=== PATIENT | male | born 1955 | race Caucasian/White ===

== ENCOUNTER 2021-05-31 21:39 | Emergency (ER) | payer MEDICARE, MEDICAID ==
[~2021-05-31] VITALS: Ht 154.1 cm; Wt 99.7 kg
[2021-05-31 21:43] VITALS: BP 117/98
--- NOTE | 2021-05-31 22:24 | Diagnostic Imaging Report ---
CLINICAL HISTORY: Right ankle pain for three months. COMPARISON: None. TECHNIQUE: 3 views of the right ankle. FINDINGS: Age-indeterminate nondisplaced fracture is seen involving the medial malleolus. There is generalized soft tissue edema surrounding the right ankle. No focal osseous lesions are seen. IMPRESSION: Age-indeterminate nondisplaced fracture involving the medial malleolus. Recommend correlation with point tenderness. Dictated by: Dictated on workstation # [id number]
--- NOTE | 2021-05-31 22:36 | ED Lower Extremity ---
General Chief Complaint: Lower Extremity Stated Complaint: RIGHT ANKLE INJURY Nursing Triage Note: Patient states he was walking his dog 3 months ago and rolled his ankle. Patient states that he has been having pain since then. Pain increased approximately 3-4 weeks ago. Patient wanted it checked out. History of Present Illness Date Seen by Provider: May 31, 2021 Time Seen by Provider: 21:45 Initial Comments 66-year-old male is here with complaints of right ankle pain which has been going on for about 1 month. Patient thinks he injured his ankle when he twisted it while walking his dog about 1 month back. Denies sensory loss. Patient has difficulty stabilizing his ankle and weight since the injury. Patient has pain and swelling around the ankle as well. Allergies and Home Medications Allergies Coded Allergies: peanut (Unverified Allergy, Unknown, 07/02/13) Patient Home Medication List Home Medication List Reviewed: Yes Review of Systems Constitutional: no symptoms reported EENTM: no symptoms reported Respiratory: no symptoms reported Cardiovascular: no symptoms reported Gastrointestinal: no symptoms reported Musculoskeletal: joint swelling, muscle pain Skin: no symptoms reported Psychiatric/Neurological: No Symptoms Reported Past Epqzyse-Pctmdo-Cgozwh Hx Patient Social History Tobacco Use?: No Substance use?: No Alcohol Use?: No Pt feels they are or have been: No Physical Exam Vital Signs Vital Signs - First Documented 05/31/21 21:43 Temp 36.3 Pulse 65 Resp 14 B/P (MAP) 117/98 (104) Pulse Ox 97 O2 Delivery Room Air Capillary Refill : Less Than 3 Seconds Height, Weight, BMI Height: 5'5.00" Weight: 235lbs. oz. 106.777888tu; 41.00 BMI Method: General Appearance: no apparent distress HEENT: PERRL/EOMI Neck: full range of motion Back: normal inspection Ankles: right ankle limited range of motion, right ankle pain, right ankle soft tissue tenderness, right ankle swelling Feet: right foot non-tender, right foot normal inspection, right foot normal range of motion, right foot no evidence of injury Neurologic/Tendon: normal sensation, normal motor functions Neurologic/Psychiatric: no motor/sensory deficits, alert, oriented x 3 Skin: normal color Progress/Results/Core Measures Results/Orders My Orders Orders - ODIN CRAMER MD Ankle 3 View Right (05/31/21 21:52) Vital Signs/I&O 05/31/21 21:43 Temp 36.3 Pulse 65 Resp 14 B/P (MAP) 117/98 (104) Pulse Ox 97 O2 Delivery Room Air Blood Pressure Mean: 104 Progress Progress Note : Progress Note 1. RIGHT MEDIAL MALLEOLUS FRACTURE, NONDISPLACED: - XR RIGHT ANKLE: nondisplaced right medial malleolus fracture - walking boot given, advised to use walker and not cane. - F/u with Ortho in the next 3 to 5 days - Tylenol or Ibuprofen prn pain Diagnostic Imaging Diagonstic Imaging: Xray Plain Films/CT/US/NM/MRI: ankle Comments [facility], [place] NAME: JAIRO HA [facility] REC#: [id number] PT STATUS: REG ER : 1955 PHYSICIAN: ODIN CRAMER MD ADMIT DATE: 05/31/21/ER FS Signed Date of Exam:05/31/21 ANKLE 3 VIEW RIGHT CLINICAL HISTORY: Right ankle pain for three months. COMPARISON: None. TECHNIQUE: 3 views of the right ankle. FINDINGS: Age-indeterminate nondisplaced fracture is seen involving the medial malleolus. There is generalized soft tissue edema surrounding the right ankle. No focal osseous lesions are seen. IMPRESSION: Age-indeterminate nondisplaced fracture involving the medial malleolus. Recommend correlation with point tenderness. Dictated by: Dictated on workstation # [id number] Dict: 05/31/212219 Trans: 05/31/212223 [facility] [id number] Interpreted by: CARLEEN GASCA DO Electronically signed by: CARLEEN GASCA DO 05/31/212223 Departure Impression Primary Impression: Medial malleolar fracture Qualified Codes: S82.54XA - Nondisplaced fracture of medial malleolus of right tibia, initial encounter for closed fracture Disposition: HOME, SELF-CARE Condition: Stable Departure-Patient Inst. Referrals: ARIANA OCONNOR MD (PCP/Family) Primary Care Physician JOSÉ ANTONIO MORALES MD Patient Instructions: Ankle Fracture (DC) Add. Discharge Instructions: - walking boot given, advised to use walker and not cane. - F/u with Ortho in the next 3 to 5 days - Tylenol or Ibuprofen prn pain All discharge instructions reviewed with patient and/or family. Voiced understanding. ODIN CRAMER MD May 31, 2021 22:36
== END 2021-05-31 22:40 | disposition home or self-care (01) ==
LOC: EDUNIT# 21:39 → ER FS 21:43
DX: S82.54XA Nondisplaced fracture of medial malleolus of right tibia, initial encounter for closed fracture (principal); X50.1XXA Overexertion from prolonged static or awkward postures, initial encounter
CPT/HCPCS: 73610

== ENCOUNTER → 2021-06-09 | Outpatient (CLI) | payer MEDICARE, MEDICAID ==
--- NOTE | 2021-06-09 17:39 | Diagnostic Imaging Report ---
Indication: Fall. Time of Exam: 2:48 PM 3 views of the right ankle were obtained. Alignment is normal. Ankle mortise is well maintained. Talar dome is smooth. No fracture or dislocation is seen. There is a large plantar calcaneal spur. There appears to be mild generalized soft tissue swelling about the ankle. IMPRESSION: Soft tissue swelling. No acute bony abnormality is detected. Dictated by: Dictated on workstation # [id number]
== END ==
LOC: RAD FS 14:30
PROVIDERS: ATTEND Nurse Practitioner
DX: M25.471 Effusion, right ankle (principal); W19.XXXA Unspecified fall, initial encounter
CPT/HCPCS: 73610

== ENCOUNTER 2021-07-25 19:21 | Emergency (ER) | payer MEDICARE, MEDICAID ==
--- NOTE | 2021-07-25 19:30 | ED General ---
General Stated Complaint: LT SHOULDER PAIN History of Present Illness Date Seen by Provider: July 25, 2021 Time Seen by Provider: 19:29 Initial Comments 66-year-old male with PMH of diabetes mellitus/right ankle issues, is here with complaints of chronic left shoulder pain which has been going on for the past few weeks. Patient thinks he might have strained his shoulder while he was doing physical therapy for his ankle since he has to grasp the handles of a machine with some strength during PT sessions. Denies falls, injuries, trauma, sensory loss, headache, dizziness, LOC, head strike. Allergies and Home Medications Allergies Coded Allergies: peanut (Unverified Allergy, Unknown, 07/02/13) Patient Home Medication List Home Medication List Reviewed: Yes Review of Systems Review of Systems Constitutional: no symptoms reported EENTM: no symptoms reported Respiratory: no symptoms reported Cardiovascular: no symptoms reported Gastrointestinal: no symptoms reported Genitourinary: no symptoms reported Musculoskeletal: joint pain, muscle pain Skin: no symptoms reported Psychiatric/Neurological: No Symptoms Reported Hematologic/Lymphatic: No Symptoms Reported Immunological/Allergic: no symptoms reported Physical Exam Vital Signs Vital Signs - First Documented 07/25/21 19:27 Temp 36.6 Pulse 89 Resp 18 B/P (MAP) 143/89 (107) Pulse Ox 97 O2 Delivery Room Air Capillary Refill : Height, Weight, BMI Height: 5'5.00" Weight: 235lbs. oz. 106.633172sr; 41.00 BMI Method: General Appearance: No Apparent Distress HEENT: PERRL/EOMI Neck: Full Range of Motion, Normal Inspection Extremity: Normal Inspection, Other (LEFT SHOULDER: no deformity, no swelling, but pt has restricted ROM and cannot fully extend his extremity above his head or straight in front of him due to pain. NV bundle intact.) Progress/Results/Core Measures Suspected Sepsis SIRS Temperature: Pulse: Respiratory Rate: Blood Pressure / Mean: Results/Orders My Orders Orders - ODIN CRAMER MD Shoulder 3 View Left (07/25/21 19:33) Ketorolac Injection (Toradol Injection) (07/25/21 19:45) Medications Given in ED Current Medications Medications Dose Ordered Sig/Laron Route Start Time Stop Time Status Last Admin Dose Admin Ketorolac Tromethamine 30 mg ONCE ONCE IM 07/25/21 19:45 5/21/22 19:46 DC 07/25/21 19:48 30 MG Vital Signs/I&O 07/25/21 19:27 Temp 36.6 Pulse 89 Resp 18 B/P (MAP) 143/89 (107) Pulse Ox 97 O2 Delivery Room Air Capillary Refill : Progress Note : Progress Note LEFT SHOULDER PAIN: ARTHRITIS - XR LEFT SHOULDER: no acute changes - Toradol 30mg im - Follow up with PCP and Ortho in the next 7 days - Over the counter lidoderm patches recommended - Tylenol prn pain - Sling for temporary relief - Will need referral for physical therapy Diagnostic Imaging Diagonstic Imaging: Xray Departure Impression Primary Impression: Chronic left shoulder pain Additional Impression: Arthritis Disposition: 01 HOME, SELF-CARE Condition: Stable Departure-Patient Inst. Referrals: ARIANA OCONNOR MD (PCP) Primary Care Physician Patient Instructions: How to Use a Shoulder Sling, Shoulder Pain (DC) Add. Discharge Instructions: - Follow up with PCP and Ortho in the next 7 days - Over the counter lidoderm patches recommended - Tylenol prn pain - Sling for temporary relief - Will need referral for physical therapy ODIN CRAMER MD July 25, 2021 19:30
[2021-07-25] MEDS ORDERED: KETOROLAC 30 MG/ML VIAL IM ONE (19:45)
--- NOTE | 2021-07-25 20:01 | Diagnostic Imaging Report ---
EXAMINATION: Left shoulder radiographs. EXAM DATE: 07/25/2021. COMPARISON: None available. HISTORY: Left shoulder pain. TECHNIQUE: 3 views of the left shoulder. FINDINGS: There is no acute fracture, dislocation, or destructive osseous process. The joint spaces are normal. The soft tissues are normal. IMPRESSION: No acute osseous abnormality of the left shoulder. Dictated by: Dictated on workstation # [id number]
[2021-07-25 21:13] VITALS: BP 143/89
== END 2021-07-25 21:18 | disposition home or self-care (01) ==
LOC: EDUNIT# 19:21 → ER FS 19:25
DX: M19.012 Primary osteoarthritis, left shoulder (principal)
CPT/HCPCS: 73030

== ENCOUNTER → 2021-08-10 | Outpatient (CLI) | payer MEDICARE, MEDICAID ==
--- NOTE | 2021-08-10 13:04 | Diagnostic Imaging Report ---
INDICATION: Pain. TECHNIQUE: Three views were obtained. FINDINGS: The alignment is normal. There is no fracture or dislocation. There are degenerative changes in the right hip. The soft tissues are unremarkable. IMPRESSION: Degenerative changes of the right hip; however, no acute fracture or dislocation. Dictated by: Dictated on workstation # [id number]
--- NOTE | 2021-08-10 13:11 | Diagnostic Imaging Report ---
INDICATION: Pain. 3 views were obtained. FINDINGS: There are minimal degenerative changes. No fracture or dislocation. There is no joint effusion. The soft tissues are unremarkable. IMPRESSION: Minimal degenerative changes otherwise unremarkable. Dictated by: Dictated on workstation # [id number]
== END ==
LOC: RAD FS 11:06
PROVIDERS: ATTEND Nurse Practitioner
DX: M17.11 Unilateral primary osteoarthritis, right knee (principal); M16.11 Unilateral primary osteoarthritis, right hip
CPT/HCPCS: 73502; 73562

== ENCOUNTER → 2021-11-18 | Outpatient (CLI) | payer MEDICARE, MEDICAID ==
--- NOTE | 2021-11-18 16:51 | Diagnostic Imaging Report ---
INDICATION: Right knee pain. COMPARISON: Exam compared with radiographs from 08/10/2021. FINDINGS: Three-view right knee showed no fracture, dislocation, or acute articular irregularity. IMPRESSION: No acute-appearing abnormality. Dictated by: Dictated on workstation # [id number]
== END ==
LOC: RAD FS 14:49
PROVIDERS: ATTEND Nurse Practitioner
DX: M17.11 Unilateral primary osteoarthritis, right knee (principal); M84.351A Stress fracture, right femur, initial encounter for fracture
CPT/HCPCS: 73562